=== PATIENT | female | born 1960 | race American Indian/Alaskan Native ===

== ENCOUNTER 2020-08-21 09:23 | Outpatient (CLI) | payer OTHER ==
--- NOTE | 2020-08-21 09:55 | XRay Report ---
LEFT HIP 2 VIEWS INDICATION / CLINICAL INFORMATION: PAIN IN LEFT HIP COMPARISON: None available. FINDINGS: BONES / JOINT(S): No acute fracture or subluxation. There is relatively advanced degenerative change in the left hip. The patient has a right hip arthroplasty. SOFT TISSUES: No significant abnormality. ADDITIONAL FINDINGS: None. Signer Name: Raffi Whitlock MD Signed: 08/21/2020 9:51 AM Workstation Name: [id number]
== END 2020-08-21 09:24 | disposition home or self-care (01) ==
LOC: XRAY 09:23
PROVIDERS: ATTEND Orthopaedic Surgery
DX: M25.552 Pain in left hip (principal); Z96.641 Presence of right artificial hip joint

== ENCOUNTER 2021-01-23 22:08 | Emergency (ER) | payer OTHER | END 2021-01-23 23:48 | LOC: ED 22:08 | DX: R20.2 Paresthesia of skin (principal); Z53.21 Procedure and treatment not carried out due to patient leaving prior to being seen by health care provider ==

== ENCOUNTER 2021-05-19 15:15 | Outpatient (CLI) | payer OTHER ==
--- NOTE | 2021-05-19 16:09 | XRay Report ---
Pelvis INDICATION: Osteoarthritis FINDINGS: Bilateral hip arthroplasties are satisfactory in position. No change in position since 2021. No acute fracture. Sacrum appears normal. Signer Name: Georgi Cleveland MD Signed: 05/19/2021 4:04 PM Workstation Name: [id number]
== END 2021-05-19 15:16 | disposition home or self-care (01) ==
LOC: XRAY 15:15
PROVIDERS: ATTEND Orthopaedic Surgery
DX: M16.12 Unilateral primary osteoarthritis, left hip (principal); M25.552 Pain in left hip; Z96.643 Presence of artificial hip joint, bilateral
CPT/HCPCS: 72170